=== PATIENT | female | born 2000 | race Caucasian/White ===

== ENCOUNTER → 2024-08-14 10:37 | Outpatient (REF) | payer OTHER, SELFPAY | LOC: HWRAD 10:37 | PROVIDERS: ATTENDING PHYSICIAN Nurse Practitioner Family; FAMILY PHYSICIAN Nurse Practitioner Adult Health; REFERRING PHYSICIAN Obstetrics & Gynecology | DX: R10.2 Pelvic and perineal pain (principal); E03.9 Hypothyroidism, unspecified | CPT/HCPCS: 76536; 76830; 76856 ==